=== PATIENT | male | born 1945 | race Caucasian/White ===

== ENCOUNTER 2023-06-16 05:03 | Emergency (ER) | payer MEDICARE, OTHER, SELFPAY ==
[2023-06-16 05:07] VITALS: BP 138/72; BMI 23.4
[2023-06-16 06:01] VITALS: BP 86/73
[2023-06-16 06:05] VITALS: BP 134/66
--- NOTE | 2023-06-16 06:47 | ED.GENMED ---
History of Present Illness
General
Chief Complaint: Fall
Source: patient
Exam Limitations: none
Time Seen by Provider: 06/16/23 06:01
Travel History
Have you had any contact with someone who has COVID-19?: No
Do you have any symptoms of coronavirus? Fever > 100 degrees, chills, cough, shortness of breath, sore throat, loss of taste or smell, muscle aches, or headache?: No
History of Present Illness
History of Present Illness:
77-year-old male who presents after he had a fall at his place of living. He [place] [facility] [place] [facility] years now. The patient states that he should have used his walker. He states he has trouble seeing and thought he reach for
it but missed and sort of fell into the chair. He states he then lowered himself to the ground. He did not fall to the ground. He did not hit his head. He denies head injury, neck pain, back pain. Denies any focal injuries. He called the
ambulance because he felt weak. He does report feeling weak. No chest pain or shortness of breath. No fevers
Past History
Past History
ED Past Medical History: Arrthythmia (afib), GERD, HTN, Hypercholesterolemia, NIDDM, Valvular disease and Psychiatric (a/d)
ED Past Surgical History: Other (Dental)
Social History
Tobacco: Non-smoker
Alcohol: None
Drug: None
Personal:
Living: alone (In a motel)
Employment: Not employed
Family History
Family History: Diabetes
Phy Exam
Physical Exam
Physical Exam:
CONSTITUTIONAL Patient alert and oriented to person, place and time. Well-appearing. Vital signs reviewed.
HEAD atraumatic, normocephalic.
EYES eyelids normal to inspection, Extraocular muscles intact, Conjunctiva normal, Sclera normal.
NECK normal range of motion, Trachea midline, no jugular venous distention.
RESPIRATORY CHEST No respiratory distress noted, Chest expansion equal, Bilateral breath sounds clear.
CARDIOVASCULAR regular rate and rhythm, Heart sounds normal.
ABDOMEN abdomen nontender, Bowel sounds normal. No distention.
BACK normal inspection, no obvious deformities
UPPER EXTREMITY range of motion normal, Motor strength normal, no cyanosis, no edema.
LOWER EXTREMITY range of motion normal, Motor strength normal, no cyanosis, no edema.
NEURO Speech normal, No focal motor deficits, [place] coma scale 15, Memory normal, Cranial Nerves intact to screening exam.
SKIN skin warm, dry, and normal in color.
PSYCHIATRIC patient oriented to person place and time, Normal affect.
Course
Orders/Labs/Results
Orders:
Orders
06/16/23 06:28
Electrocardiogram (*1) Urgent
Reason for Study: Palpitations
EKG- Treatment ONCE
06/16/23 07:18
Complete Blood Count/With Diff Urgent
Comprehensive Metabolic Panel Urgent
Urinalysis Reflex To Culture Urgent
Date Specimen was Collected: 06/16/23
Time Specimen was Collected: 07:08
Urine Microscopic Reflex Cult Urgent
Urine Culture Urgent
DELANEY Source: U
Specimen Description:
Date Specimen was Collected: 06/16/23
Time Specimen was Collected: 07:08
06/16/23 07:57
Potassium Chloride 10% Elixir [KCl Elixir] 40 meq PO NOW STA
Abnormal Lab Results
06/16/23
07:18
WBC 11.1 H 10^3/uL
(4.8-10.8)
Abs Immat Gran (auto) 0.1 H 10^3/uL
(0-0.05)
Absolute Neuts (auto) 8.8 H 10^3/uL
(1.4-6.5)
Absolute Lymphs (auto) 0.5 L 10^3/uL
(1.2-3.4)
Absolute Monos (auto) 1.6 H 10^3/uL
(0.1-0.6)
Immature Gran % 0.7 H %
(0-0.5)
Neutrophils % 78.9 H %
(42.2-75.2)
Lymphocytes % 4.9 L %
(20.5-51.1)
Monocytes % 14.7 H %
(1.7-9.3)
Sodium 131 L mmol/L
(135-145)
Potassium 3.2 L mmol/L
(3.5-5.1)
Chloride 92 L mmol/L
(98-107)
Glucose 226 H mg/dl
(70-99)
Alkaline Phosphatase 201 H U/L
(38-126)
Urine Ketones Trace A
(Negative)
Ur Occult Blood Reflex Trace A
(Negative)
Leukocyte Esterase Rfl 1+ A
(Negative)
Urine Bacteria (Reflex) Few A
(Negative)
Urine Yeast Few A
(Negative)
Urine Glucose 3+ A
(Negative)
06/16/23 07:18
06/16/23 07:18
Vital Signs
Initial and Last Documented VS:
Initial Vital Signs
Temp Pulse Resp BP Pulse Ox
98.3 F 78 20 138/72 98
06/16/23 05:07 06/16/23 05:07 06/16/23 05:07 06/16/23 05:07 06/16/23 05:07
Last Documented Vital Signs
Temp Pulse Resp BP Pulse Ox
98.3 F 65 17 124/56 98
06/16/23 05:07 06/16/23 08:00 06/16/23 08:00 06/16/23 08:00 06/16/23 07:00
MDM/Problems Addressed
MDM/Problems Addressed:
Weakness, fall
*Pulse Oximetry
Patient hypoxic: no
*EKG
Interpreted by ED Provider?: Yes
Interpretation: normal
Rhythm: ventricular paced
Ischemia: non-specific ST changes
*Director Of Midwifery/Staff Midwife Interpretation
Rate: normal
Rhythm: ventricular paced
*Critical Care Note
Total Time (30-74mins, 75-104mins- exclusive of procedures): Not Applicable
Data Reviewed
Further Testing Considered But Not Given:
Consider CT of the head but patient denies fall to the ground and denies head injury at all. There is no outward signs of trauma. He was observed and no changes in mentation.
Patient Management
Escalation/DeEscalation of care consider admission/obs:
Patient appears well. At baseline. Okay for discharge and outpatient follow-up
ED Attending Note
-
Portions of this chart may have been created with voice recognition software.� Occasional wrong word or��sound alike� substitutions may have occurred due to the inherent limitations of voice recognition software.
Discharge Plan
Departure
Patient Disposition: Home (Routine Discharge)
Date of Disposition: 06/16/23
Time of Disposition: 09:12
Patient with high blood pressure during this ER visit?: No
Discharge Problem:
Weakness, Fall
Instructions: Generalized Weakness, Fall Prevention for Older Adults
Prescriptions:
No Action
pravastatin 40 mg Tablet
40 mg PO QPM
glimepiride 4 mg Tablet
4 mg PO DAILY
brimonidine-timolol [Combigan] 0.2-0.5 % Drops
1 drp BOTH EYES BID
Lumigan 0.01 % drops
1 drp BOTH EYES HS
docusate sodium 100 mg Capsule
100 mg PO BIDPRN PRN (Reason: constipation) Qty: 30 0RF
polyethylene glycol 3350 17 gram Powder In Packet
17 g PO DAILYPRN PRN (Reason: constipation) Qty: 30 0RF
dextrose [Glucose Gel] 40 % Gel
15 g PO Q1HPRN PRN (Reason: HYPOGLYCEMIA, IS CONSCIOUS AND CAN TAKE PO)
magnesium hydroxide [Milk of Magnesia] 400 mg/5 mL Suspension
30 ml PO DAILYPRN PRN (Reason: NO BM IN 3 DAYS)
bisacodyl [Dulcolax (bisacodyl)] 10 mg Suppository
10 mg MD DAILY PRN (Reason: IF MOM INEFFECTIVE)
Fleet Enema 19-7 gram/118 mL Enema
118 ml MD DAILYPRN PRN (Reason: IF DULCO SUPP INEFFECTIVE IN 24h)
sertraline 50 mg Tablet
50 mg PO DAILY
insulin aspart U-100 [Novolog FlexPen U-100 Insulin] 100 unit/mL (3 mL) Insulin Pen
0 sliding scale dose SC AC
solifenacin 5 mg Tablet
5 mg PO DAILY
glucagon HCl [Glucagon (HCl) Emergency Kit] 1 mg Recon Soln
1 mg IM PRN PRN (Reason: HYPOGLYCEMIA BS<70)
furosemide 40 mg tablet
40 mg PO DAILY
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
aspirin 81 mg tablet,delayed release (DR/EC)
81 mg PO DAILY
carvedilol 3.125 mg tablet
3.125 mg PO BID
potassium chloride [Klor-Con] 20 mEq packet
20 meq PO BID
Hold Instructions: hold until follow up with your sales [employer] and primary care doctor
Jardiance 10 mg tablet
10 mg PO DAILY
Entresto 24-26 mg tablet
1 tab PO BID
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
acetaminophen [Tylenol] 325 mg Tablet
650 mg PO Q8H Qty: 0 0RF
spironolactone 25 mg tablet
12.5 mg PO DAILY Qty: 0 0RF
Referrals:
Hair Harris DO [Family Provider] -
Activity Restrictions/Additional Instructions:
please see your doctor in follow-up next 3 to 5 days. Please be sure to use your walker as discussed. Return immediately for changes in mentation, weakness of any kind, fevers or any other concerns.
Interventions
Interventions:
*Risk Screen - Suicide Last Done: 06/16/23 05:07
*General Assessment Last Done: 06/16/23 05:07
*Neglect/Abuse Screening Last Done: 06/16/23 05:07
ED- Fall Risk Assessment Last Done: 06/16/23 05:27
*ED COVID-19 Vaccine History Last Done: 06/16/23 05:23
ED-Musculoskeletal Assessment Last Done: 06/16/23 05:27
ED- Neurological Assessment Last Done: 06/16/23 05:27
ED-Skin Assessment Last Done: 06/16/23 05:27
[2023-06-16 07:00] VITALS: BP 125/56
[2023-06-16 07:32] LABS: % Basophils 0.4 % (0-2); % Eosinophils 0.4 % (0-6); % Immature Granulocytes 0.7 % (0-0.5); % Lymphocytes 4.9 % (20.5-51.1); % Monocytes 14.7 % (1.7-9.3); % Neutrophils 78.9 % (42.2-75.2); Absolute Immature Granulocytes 0.1 10^3/uL (0-0.05); Absolute Lymphocytes 0.5 10^3/uL (1.2-3.4); Absolute Monocytes 1.6 10^3/uL (0.1-0.6); Absolute Neutrophils 8.8 10^3/uL (1.4-6.5); Hemoglobin 14.5 g/dL (13.0-18.0); Mean Corp Hgb Conc. 33.7 g/dL (33.0-37.0); Mean Corpuscular Hgb 28.2 pg (27.0-31.0); Mean Corpuscular Volume 83.7 fL (80.0-94.0); Mean Platelet Volume 8.6 fL (7.4-10.4); Nucleated Red Blood Cells % 0 % (-); Platelet Count 146 10^3/uL (130-400); Red Blood Cell Count 5.14 10^6/uL (4.70-6.10); Red Cell Dist. Width 14.4 % (11.5-14.5); White Blood Cell Count 11.1 10^3/uL (4.8-10.8)
[2023-06-16 07:37] LABS: Urine Albumin Negative (Neg - Trace); Urine Bilirubin Negative (Negative); Urine Character Clear (Clear); Urine Color Yellow; Urine Glucose 3+ (Negative); Urine Ketone Trace (Negative); Urine Leukocyte 1+ (Negative); Urine Nitrite Negative (Negative); Urine Occult Blood Trace (Negative); Urine Urobilinogen Negative (Neg - 1+)
[2023-06-16 07:47] LABS: ALT (SGPT) 36 U/L (0-50); AST (SGOT) 48 U/L (17-59); Albumin 4.2 g/dl (3.5-5.0); Alkaline Phosphatase 201 U/L (38-126); Blood Urea Nitrogen 17 mg/dl (9-20); Calcium 9.4 mg/dl (8.4-10.2); Carbon Dioxide 30 mmol/L (22-30); Chloride 92 mmol/L (98-107); Estimated Creatinine Clearance 87 ml/min; Glucose 226 mg/dl (70-99); Potassium 3.2 mmol/L (3.5-5.1); Sodium 131 mmol/L (135-145); Total Bilirubin 0.7 mg/dl (0.2-1.3); Total Protein 7.2 g/dl (6.3-8.2); eGFR > 60.00
[2023-06-16 08:00] VITALS: BP 124/56
[2023-06-16 08:15] LABS: Urine Bacteria Few (Negative); Urine Red Blood Cell 0-2 /HPF (0-2); Urine White Cell 0-2 /HPF (0-5); Urine Yeast Few (Negative)
[2023-06-16] MEDS: KCL ELIXIR 40 MEQ PO (08:21)
[2023-06-16 09:00] VITALS: BP 117/90
--- NOTE | 2023-06-16 09:39 | CM ---
CM was consulted to assist with transportation back to [facility] in [place]. Patient is on extended stay at [facility] and is currently homeless. CM will provide transportation assistance via [employer].
== END 2023-06-16 09:57 | disposition home or self-care (01) ==
LOC: EMR 05:03
PROVIDERS: EMERGENCY PHYSICIAN Emergency Medicine; FAMILY PHYSICIAN Family Medicine
DX: R53.1 Weakness (principal); W19.XXXA Unspecified fall, initial encounter; E78.00 Pure hypercholesterolemia, unspecified; E11.9 Type 2 diabetes mellitus without complications; I38 Endocarditis, valve unspecified; I11.0 Hypertensive heart disease with heart failure; I50.9 Heart failure, unspecified; R01.1 Cardiac murmur, unspecified; I48.91 Unspecified atrial fibrillation; K21.9 Gastro-esophageal reflux disease without esophagitis; F41.9 Anxiety disorder, unspecified; F32.A Depression, unspecified; Z95.0 Presence of cardiac pacemaker; Z79.84 Long term (current) use of oral hypoglycemic drugs
CPT/HCPCS: 99283; 80053; 81003; 81015; 85025; 87086; 93005

== ENCOUNTER 2024-09-29 08:03 | Inpatient (IN) | payer MEDICARE, OTHER, SELFPAY ==
[2024-09-28] VITALS (10 sets, daily range): BP systolic 126–154; BP diastolic 53–84; PULSE 95
[2024-09-28 12:41] LABS: % Basophils 0.5 % (0-2); % Eosinophils 0.9 % (0-6); % Immature Granulocytes 0.7 % (0-0.5); % Monocytes 6.4 % (1.7-9.3); % Neutrophils 82.5 % (42.2-75.2); Absolute Basophils 0.1 10^3/uL (0-0.2); Absolute Eosinophils 0.2 10^3/uL (0-0.7); Absolute Immature Granulocytes 0.1 10^3/uL (0-0.05); Absolute Lymphocytes 1.8 10^3/uL (1.2-3.4); Absolute Monocytes 1.3 10^3/uL (0.1-0.6); Absolute Neutrophils 16.4 10^3/uL (1.4-6.5); Hematocrit 43.1 % (39.0-52.0); Hemoglobin 14.6 g/dL (13.0-18.0); Mean Corp Hgb Conc. 33.9 g/dL (33.0-37.0); Mean Corpuscular Hgb 28.8 pg (27.0-31.0); Mean Platelet Volume 8.8 fL (7.4-10.4); Nucleated Red Blood Cells % 0 % (-); Platelet Count 255 10^3/uL (130-400); Red Blood Cell Count 5.07 10^6/uL (4.70-6.10); White Blood Cell Count 19.8 10^3/uL (4.8-10.8)
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
[2024-09-28 13:09] LABS: ALT (SGPT) 25 U/L (0-50); AST (SGOT) 25 U/L (17-59); Albumin 3.9 g/dl (3.5-5.0); Alkaline Phosphatase 167 U/L (38-126); Blood Urea Nitrogen 17 mg/dl (9-20); Calcium 10.6 mg/dl (8.4-10.2); Carbon Dioxide 34 mmol/L (22-30); Chloride 95 mmol/L (98-107); Estimated Creatinine Clearance 74 ml/min; Glucose 177 mg/dl (70-99); Potassium 3.4 mmol/L (3.5-5.1); Sodium 137 mmol/L (135-145); Total Bilirubin 0.9 mg/dl (0.2-1.3); Total Protein 7.3 g/dl (6.3-8.2); eGFR > 60.00
[2024-09-28] MEDS: NSS 500 IV (13:21)
[2024-09-28 13:41] LABS: Urine Albumin 2+ (Neg - Trace); Urine Bilirubin Negative (Negative); Urine Character Clear (Clear); Urine Color Yellow; Urine Glucose 4+ (Negative); Urine Ketone Negative (Negative); Urine Leukocyte 3+ (Negative); Urine Nitrite Negative (Negative); Urine Occult Blood 4+ (Negative); Urine Specific Gravity 1.015 (<1.030); Urine Urobilinogen Negative (Neg - 1+)
[2024-09-28 13:59] LABS: Troponin I 0.016 ng/ml
[2024-09-28 14:01] LABS: Creatine Phosphokinase 39 U/L (55-170)
[2024-09-28 14:28] LABS: Urine Squamous Cell 16-20 /LPF (Few)
[2024-09-28 14:29] LABS: Urine Amorphous Seen
[2024-09-28 14:31] LABS: Urine Red Blood Cell 30-40 /HPF (0-2)
[2024-09-28 14:32] LABS: Urine Bacteria Many (Negative); Urine White Cell 60-70 /HPF (0-5)
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
--- NOTE | 2024-09-28 15:46 | CM ---
ED CM consult for dc planning
Bedside meeting with pt
He has been living in a motel for 5 years as he does not get along with his spouse
Spouse continues resides in their family home and she manages the finances
Pt is independent with use of a WW
Spouse continues to assist and support pt in the motel multiple times a week
PCP- Rajinder Mac
PT eval requested and SNF recommendations
Call with Cydney at [facility] as pt noted he has a CM through [facility]
Not currently receiving any services through the [facility] or waiver
Call with spouse/Matilda
She confirms she manages all their finances
Pt currently without qualifying stay
Plan for general SNF referrals in the the [facility]
PASRR completed and referrals sent and pending
CM late notified that pt planned for admissions/with UTI
Not eligible for [employer] waiver
Discharge Disposition- SNF
[2024-09-28 17:06] LABS: Magnesium 1.5 mg/dl (1.6-2.3); Phosphorus 3.3 mg/dl (2.5-4.5)
--- NOTE | 2024-09-28 17:07 | W.PN.UPDATE ---
Update Note
Progress Note Update
Patient seen and examined and discussed with ADRIAN Puente, and I agree with her note.
Gen-AAOx3, NAD, cachectic
HEENT-NC, AT, anicteric, clear oral mm
Neck-supple
CV-reg, no M, +S1/S2
Lungs-clear B/L
Abd-soft, NT, ND
Ext-no edema
Musculoskeletal-no cyanosis, clubbing
Skin-warm and dry
Neuro-grossly non-focal
Psych-calm, cooperative
Sepsis -presentation with generalized weakness, leukocytosis, tachycardia. Differential diagnosis of community-acquired pneumonia versus urinary tract infection. He does have a mild cough, but denies urinary symptoms. He is not a very good
historian. Hemodynamically stable otherwise. Admit to telemetry, broad-spectrum antibiotics, check cultures.
Ambulatory dysfunction -presentation with fall. Cannot rule out syncope. Monitor on telemetry. Check orthostatics. Interrogate ICD.
Consult PT/OT.
Urinary retention -probably chronic. Bladder ultrasound notes 409 cc postvoid residual. No hydronephrosis noted on ultrasound. Follow-up bladder scan protocol. Can add tamsulosin.
History of atrial flutter/fibrillation -continue Eliquis.
Chronic heart failure reduced EF -last echocardiogram showed EF improvement in January 2023.
Essential hypertension
Hyperlipidemia
DM2 with hyperglycemia -he is on glimepiride, Jardiance at home. Hold glimepiride in the hospital. Use sliding scale insulin in the hospital. Check hemoglobin A1c.
GERD
Underweight -concern for protein calorie malnutrition. Consult nutrition.
Depression/anxiety disorder -denies suicidal ideation currently. Crisis has been asked to see in evaluation.
DNR
Dispo -anticipate discharge to SNF with option for long-term care. Currently resides in a hotel and cannot take care of himself.
Left a voicemail for patient's to call me back.
[2024-09-28] MEDS: MAXIPIME 2000 MG IV (17:08)
[2024-09-28] MEDS: ELIQUIS 5 MG PO (19:55)
[2024-09-28] MEDS: COREG 3.125 MG PO (19:55)
[2024-09-28] MEDS: PRAVACHOL 40 MG PO (19:55)
[2024-09-28] MEDS: VIBRAMYCIN 260 MG IV (19:56)
[2024-09-28 21:24] LABS: Glucose - Point of Care 184 mg/dl (70-99)
[2024-09-28] MEDS: MELATONIN 5 MG PO (23:05)
[2024-09-28] MEDS: STERILE WATER FOR INJECTION 10 ML IV (23:09)
[2024-09-28] MEDS: ROCEPHIN 1000 MG IV (23:09)
--- NOTE | 2024-09-29 00:32 | PTCARENOTE ---
patient was offered body hygiene, but refused.
[2024-09-29] MEDS: ANESTHETIC LOZENGE 1 LOZENGE PO (00:47)
[2024-09-29 03:00] VITALS: BP 122/58
[2024-09-29 06:00] VITALS: BMI 16.9
[2024-09-29 06:03] LABS: Hematocrit 39.7 % (39.0-52.0); Hemoglobin 13.2 g/dL (13.0-18.0); Mean Corp Hgb Conc. 33.2 g/dL (33.0-37.0); Mean Corpuscular Hgb 28.6 pg (27.0-31.0); Mean Corpuscular Volume 85.9 fL (80.0-94.0); Mean Platelet Volume 8.7 fL (7.4-10.4); Platelet Count 238 10^3/uL (130-400); Red Blood Cell Count 4.62 10^6/uL (4.70-6.10); Red Cell Dist. Width 14.8 % (11.5-14.5); White Blood Cell Count 19.1 10^3/uL (4.8-10.8)
[2024-09-29 06:31] LABS: Blood Urea Nitrogen 12 mg/dl (9-20); Calcium 9.5 mg/dl (8.4-10.2); Carbon Dioxide 32 mmol/L (22-30); Chloride 97 mmol/L (98-107); Estimated Creatinine Clearance 70 ml/min; Glucose 127 mg/dl (70-99); Sodium 138 mmol/L (135-145); eGFR > 60.00
[2024-09-29 07:33] VITALS: BP 136/67
[2024-09-29] MEDS: KCL 270 MEQ IV (07:36)
[2024-09-29] MEDS: MAGNESIUM SULFATE 100 IV (07:48)
[2024-09-29 07:58] LABS: Glucose - Point of Care 105 mg/dl (70-99)
[2024-09-29 08:01] LABS: Magnesium 1.5 mg/dl (1.6-2.3)
[2024-09-29] MEDS: FARXIGA 10 MG PO (08:15)
[2024-09-29] MEDS: VIBRAMYCIN 260 MG IV ×2 (08:15→20:23)
[2024-09-29] MEDS: VESICARE 5 MG PO (08:15)
[2024-09-29] MEDS: ELIQUIS 5 MG PO ×2 (08:16→20:16)
[2024-09-29] MEDS: ALDACTONE 25 MG PO (08:16)
[2024-09-29] MEDS: LASIX 40 MG PO (08:16)
[2024-09-29] MEDS: COREG 3.125 MG PO ×2 (08:16→20:16)
[2024-09-29] MEDS: NOVOLOG FLEXPEN-LOW RESISTANCE SC ×2 (08:16→12:38)
[2024-09-29] MEDS: KCL 20 MEQ PO (08:16)
[2024-09-29] MEDS: ZOLOFT 50 MG PO (08:16)
[2024-09-29 08:47] LABS: Glycohemoglobin (HgbA1c) 11.5 % (4.0-5.6)
--- NOTE | 2024-09-29 09:30 | W.PN.HOSP.TC ---
Today's Communication/Plan
-
Psychiatry consult
Interrogate ICD
Orthostatic vitals
Monitor bladder scans
Continue antibiotics
Follow-up blood cultures
Replete potassium, magnesium
PT/OT
Assessment / Plan
Assessment / Plan
Gen-AAOx3, NAD, cachectic
HEENT-NC, AT, anicteric, clear oral mm
Neck-supple
CV-reg, no M, +S1/S2
Lungs-clear B/L
Abd-soft, NT, ND
Ext-no edema
Musculoskeletal-no cyanosis, clubbing
Skin-warm and dry
Neuro-grossly non-focal
Psych-calm, cooperative
Sepsis -presentation with generalized weakness, leukocytosis, tachycardia. Differential diagnosis of community-acquired pneumonia versus urinary tract infection. He does have a mild cough, but denies urinary symptoms. Urinalysis does show pyuria
and hematuria. He is not a very good historian. Hemodynamically stable otherwise. Blood cultures pending. Urine culture shows mixed alesia, probable contamination. Continue broad-spectrum antibiotics.
Check COVID antigen.
Ambulatory dysfunction -presentation with fall. Cannot rule out syncope. Monitor on telemetry. Check orthostatics. Interrogate ICD, [place] text sent to cardiology.
Consult PT/OT.
Urinary retention -probably chronic. Bladder ultrasound notes 409 cc postvoid residual. No hydronephrosis noted on ultrasound. Follow-up bladder scan protocol. Can add tamsulosin.
Hypokalemia -will replete. Potassium 3.0.
Hypomagnesemia -will replete. Magnesium 1.5.
History of atrial flutter/fibrillation -continue Eliquis.
Chronic heart failure reduced EF -last echocardiogram showed EF improvement in January 2023.
Essential hypertension -stable.
Hyperlipidemia -pravastatin.
DM2 with hyperglycemia -uncontrolled. Hemoglobin A1c 11.5%. Likely not compliant with his home medications. He is prescribed glimepiride, Jardiance at home. Hold glimepiride in the hospital. Currently on Farxiga 10 mg daily, insulin aspart low
resistance corrective scale.
Glucose 127 this morning, 184 last night.
GERD
Underweight -concern for protein calorie malnutrition. Consult nutrition.
Depression/anxiety disorder -denies suicidal ideation currently. Consult psychiatry.
DNR
Dispo -anticipate discharge to SNF with option for long-term care. Currently resides in a hotel and cannot take care of himself.
Left a voicemail for patient's to call me back.
Anticipated Discharge: 24 - 48 hours
Subjective/Interval History
-
Date of Service: September 29, 2024
Patient seen and examined. No new complaints.
Objective Data
-
Labs:
Laboratory Results
09/29/24
05:29
WBC 19.1 H
Hgb 13.2
Hct 39.7
Plt Count 238
Sodium 138
Potassium 3.0 L
Chloride 97 L
Carbon Dioxide 32 H
BUN 12
Creatinine 0.5 L
Glucose 127 H
Calcium 9.5
Vital Signs:
Vital Signs
Temp Pulse Resp BP Pulse Ox
98.8 F 66 18 136/67 92
09/29/24 07:33 09/29/24 07:33 09/29/24 07:33 09/29/24 07:33 09/29/24 07:33
I&O
09/28/24 09/29/24 09/30/24
06:59 06:59 06:59
Intake Total 480 / 480
Output Total 420 / 420 665 / 665
Balance -420 / -420 -185 / -185
Review of Systems
-
History Source: Patient
All other systems: Reviewed and negative
[2024-09-29] MEDS: FLOMAX 0.4 MG PO (09:55)
[2024-09-29 10:12] VITALS: BMI 16.9
--- NOTE | 2024-09-29 10:31 | PTCARENOTE ---
Per bladder scan/straight cath protocol pt. bladder scanned which showed 442mls. This RN noticed prior to straight cath insertion that the tip of the pt's penis is very red and irritated. This RN suspected that pt. could be allergic to Betadine
since this was used for the last straight cath insertion and the pt. says this is a new finding. This RN updated provider and PRN Hibiclens ordered for straight cath/palacios insertion.
[2024-09-29 11:11] LABS: Glucose - Point of Care 168 mg/dl (70-99)
[2024-09-29 11:26] VITALS: BP 115/50
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
[2024-09-29 15:30] VITALS: BP 100/57
[2024-09-29] MEDS: PRAVACHOL 40 MG PO (17:28)
[2024-09-29 17:31] LABS: Glucose - Point of Care 260 mg/dl (70-99)
[2024-09-29 18:05] LABS: COVID-19 Antigen Negative (Negative)
[2024-09-29] MEDS: NOVOLOG FLEXPEN-LOW RESISTANCE 3 UNITS SC (18:12)
[2024-09-29 19:00] VITALS: BP 121/56
[2024-09-29] MEDS: HYDROCORTISONE 1% CREAM 1 APPLIC TOPICAL (20:18)
[2024-09-29] MEDS: STERILE WATER FOR INJECTION 10 ML IV (21:23)
[2024-09-29] MEDS: ROCEPHIN 1000 MG IV (21:23)
[2024-09-29 21:59] LABS: Glucose - Point of Care 239 mg/dl (70-99)
[2024-09-29 23:00] VITALS: BP 143/68
[2024-09-30] VITALS (7 sets, daily range): BP systolic 99–132; BP diastolic 44–78; PULSE 64; O2SAT 97; BMI 17.4
[2024-09-30 07:16] LABS: Glucose - Point of Care 154 mg/dl (70-99)
[2024-09-30 07:38] LABS: % Basophils 0.4 % (0-2); % Eosinophils 1.1 % (0-6); % Immature Granulocytes 0.6 % (0-0.5); % Lymphocytes 11.2 % (20.5-51.1); % Monocytes 8.3 % (1.7-9.3); % Neutrophils 78.4 % (42.2-75.2); Absolute Basophils 0.1 10^3/uL (0-0.2); Absolute Eosinophils 0.2 10^3/uL (0-0.7); Absolute Immature Granulocytes 0.1 10^3/uL (0-0.05); Absolute Monocytes 1.5 10^3/uL (0.1-0.6); Absolute Neutrophils 14.2 10^3/uL (1.4-6.5); Hematocrit 34.7 % (39.0-52.0); Hemoglobin 11.6 g/dL (13.0-18.0); Mean Corp Hgb Conc. 33.4 g/dL (33.0-37.0); Mean Corpuscular Hgb 28.4 pg (27.0-31.0); Mean Corpuscular Volume 84.8 fL (80.0-94.0); Nucleated Red Blood Cells % 0 % (-); Platelet Count 225 10^3/uL (130-400); Red Blood Cell Count 4.09 10^6/uL (4.70-6.10); Red Cell Dist. Width 14.9 % (11.5-14.5); White Blood Cell Count 18.2 10^3/uL (4.8-10.8)
[2024-09-30] MEDS: VESICARE 5 MG PO (07:47)
[2024-09-30] MEDS: COREG 3.125 MG PO ×2 (07:47→21:37)
[2024-09-30] MEDS: FARXIGA 10 MG PO (07:47)
[2024-09-30] MEDS: FLOMAX 0.4 MG PO ×2 (07:47→21:37)
[2024-09-30] MEDS: KCL 20 MEQ PO (07:47)
[2024-09-30] MEDS: ELIQUIS 5 MG PO ×2 (07:48→21:36)
[2024-09-30] MEDS: ZOLOFT 50 MG PO (07:48)
[2024-09-30] MEDS: HYDROCORTISONE 1% CREAM 1 APPLIC TOPICAL ×2 (07:48→21:36)
[2024-09-30] MEDS: ALDACTONE 25 MG PO (07:48)
[2024-09-30] MEDS: LASIX 40 MG PO (07:48)
[2024-09-30] MEDS: VIBRAMYCIN 260 MG IV ×2 (07:49→21:35)
[2024-09-30] MEDS: NOVOLOG FLEXPEN-LOW RESISTANCE 1 UNITS SC (07:49)
[2024-09-30 08:15] LABS: Blood Urea Nitrogen 12 mg/dl (9-20); Calcium 8.8 mg/dl (8.4-10.2); Carbon Dioxide 30 mmol/L (22-30); Chloride 97 mmol/L (98-107); Estimated Creatinine Clearance 72 ml/min; Glucose 147 mg/dl (70-99); Potassium 3.9 mmol/L (3.5-5.1); Sodium 136 mmol/L (135-145); eGFR > 60.00
--- NOTE | 2024-09-30 09:43 | W.PN.HOSP.TC ---
Today's Communication/Plan
-
Orthostatic vitals
General Surgery consult
Urology consult
Increase tamsulosin
Aponte catheter
Assessment / Plan
Assessment / Plan
Gen-AAOx3, NAD, cachectic
HEENT-NC, AT, anicteric, clear oral mm
Neck-supple
CV-reg, no M, +S1/S2
Lungs-clear B/L
Abd-soft, NT, ND
Ext-no edema
Musculoskeletal-no cyanosis, clubbing
Skin-warm and dry
Neuro-grossly non-focal
Psych-calm, cooperative
Sepsis -presentation with generalized weakness, leukocytosis, tachycardia. WBC count still relatively high. Afebrile. Differential diagnosis of community-acquired pneumonia versus urinary tract infection. He does have a mild cough, but denies
urinary symptoms. Urinalysis does show pyuria and hematuria. He is not a very good historian. Hemodynamically stable otherwise. Blood cultures negative so far. Urine culture shows mixed alesia, probable contamination. Continue broad-spectrum
antibiotics.
Possible balanitis -unclear if infectious versus allergic reaction. Consult urology.
Urinary retention, acute versus chronic -bladder scans consistently over [address] Aponte catheter. Discussed with nursing. Increase tamsulosin to twice daily.
Large right inguinal hernia -chronic but does have pain occasionally. Will consult general surgery for opinion.
Ambulatory dysfunction -presentation with fall. Cannot rule out syncope. Monitor on telemetry. Check orthostatics. ICD interrogation without concerning arrhythmias. Discussed with cardiology.
Hypokalemia -improved.
Hypomagnesemia -labs pending for today.
History of atrial flutter/fibrillation -continue Eliquis.
Chronic heart failure reduced EF -last echocardiogram showed EF improvement in January 2023.
Essential hypertension -stable.
Hyperlipidemia -pravastatin.
DM2 with hyperglycemia -uncontrolled. Hemoglobin A1c 11.5%. Likely not compliant with his home medications. He is prescribed glimepiride, Jardiance at home. Hold glimepiride in the hospital. Currently on Farxiga 10 mg daily, insulin aspart low
resistance corrective scale.
Glucose 154 this morning, 239 last night.
GERD
Underweight -concern for protein calorie malnutrition. Consult nutrition.
Depression/anxiety disorder -denies suicidal ideation currently. Psychiatry consult noted.
DNR
Dispo -anticipate discharge to SNF with option for long-term care. Currently resides in a hotel and cannot take care of himself.
Left a voicemail for patient's to call me back. No callback so far.
Anticipated Discharge: 24 - 48 hours
Subjective/Interval History
-
Date of Service: September 30, 2024
Patient seen and examined. Complaining of pleuritic pain with cough. Occasional right inguinal pain.
Objective Data
-
Labs:
Laboratory Results
09/30/24
07:02
WBC 18.2 H
Hgb 11.6 L
Hct 34.7 L
Plt Count 225
Sodium 136
Potassium 3.9 D
Chloride 97 L
Carbon Dioxide 30
BUN 12
Creatinine 0.6 L
Glucose 147 H
Calcium 8.8
Vital Signs:
Vital Signs
Temp Pulse Resp BP Pulse Ox
98.4 F 67 19 125/78 98
09/30/24 07:43 09/30/24 07:43 09/30/24 07:43 09/30/24 07:43 09/30/24 07:43
I&O
09/29/24 09/30/24 10/01/24
06:59 06:59 06:59
Intake Total 1080 / 1080
Output Total 420 / 420 2094 / 2094
Balance -420 / -420 -1015 / -1015
Review of Systems
-
History Source: Patient
All other systems: Reviewed and negative
[2024-09-30 10:05] LABS: Phosphorus 2.1 mg/dl (2.5-4.5)
--- NOTE | 2024-09-30 10:05 | CONS.URO ---
Consultation
-
Date/Time Consultation Performed: 09/30/2024 0955
Performing Provider: Abimael
Reason for Consultation: balanitis
Medical History
History of Present Illness
79 yo male admitted via ED yesterday after 'mechanical fall'.
Evaluated for suicidal ideation, depression, anxiety since admission.
Was straight catheterized yesterday for 413 ml.
Today, phallus was noted to be erythematous, prompting Urology consultation.
Past Medical History
Past Medical History: Psychiatric (see HPI) and Other (DM-II, hypertension, hyperlipidemia, GERD, HFrEF)
Past Surgical History: None
Social History
Personal: Other (estranged from , but she still provides care for him)
Living: Alone
Employment: Not Employed
Family History
Family History: Reviewed & Not Pertinent
Allergies/Home Medications
Allergies
Allergy/AdvReac Type Severity Reaction Status Date / Time
No Known Allergies Allergy Verified 09/28/24 12:18
Home Medications
�Medication �Instructions �Recorded �Confirmed �Type
bimatoprost 0.01 % eye drops 1 drp BOTH EYES HS Eye condition 06/26/22 07/11/22 History
(Lumigan)
brimonidine 0.2 %-timolol 0.5 % 1 drp BOTH EYES BID Eye condition 06/26/22 07/11/22 History
eye drops (Combigan)
glimepiride 4 mg tablet 4 mg PO DAILY Diabetes 06/26/22 09/28/24 History
pravastatin 40 mg tablet 40 mg PO QPM High cholesterol 06/26/22 07/11/22 History
carvedilol 3.125 mg tablet 3.125 mg PO BID Heart Failure 07/11/22 09/28/24 History
empagliflozin 10 mg tablet 10 mg PO DAILY Diabetes 07/11/22 09/28/24 History
(Jardiance)
sertraline 50 mg tablet 50 mg PO DAILY Depression 07/11/22 09/28/24 History
solifenacin 5 mg tablet 5 mg PO DAILY Urinary issue 07/11/22 09/28/24 History
apixaban 5 mg tablet (Eliquis) 5 mg PO BID 09/28/24 09/28/24 History
furosemide 40 mg tablet (Lasix) 40 mg PO DAILY 09/28/24 09/28/24 History
hydroxyzine HCl 25 mg tablet 25 mg PO TIDPRN PRN anxiety 09/28/24 09/28/24 History
potassium chloride 20 mEq 20 meq PO DAILY 09/28/24 09/28/24 History
tablet,extended release
spironolactone 25 mg tablet 25 mg PO DAILY Heart Failure 09/28/24 09/28/24 History
Physical Exam
Vital Signs
Vital Signs
Temp Pulse Resp BP Pulse Ox
98.4 F 67 19 125/78 98
09/30/24 07:43 09/30/24 07:43 09/30/24 07:43 09/30/24 07:43 09/30/24 07:43
Lab / Testing Results
Laboratory Results
09/30/24 07:02
09/30/24 07:02
Physical Exam
adult male in hospital bed
thin, cachectic -- appears chronically ill
General: No Apparent Distress
Genito-urinary: Other (uncircumcised phallus with retracted foreskin and erythematous, edematous glans and prepuce with whitish exudate; paraphimosis manually reduced at bedside with patient's verbal consent obtained)
Assessment / Plan
-
Paraphimosis -- foreskin presumptive retracted at time of straight catheterization
secondary Balanitis
Rec:
paraphimosis manually reduced at bedside
Fluconazole x 3 doses
Data Reviewed
-
Total Time Spent with Patient (in minutes): 7 minutes
Lab Data: Labs Reviewed
Old Records: Reviewed
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
[2024-09-30] MEDS: SODIUM PHOSPHATE 255 MEQ IV (11:45)
[2024-09-30 11:58] LABS: Glucose - Point of Care 274 mg/dl (70-99)
[2024-09-30] MEDS: MYCOSTATIN OINTMENT 1 APPLIC TOPICAL ×2 (12:32→22:12)
[2024-09-30] MEDS: NOVOLOG FLEXPEN-LOW RESISTANCE 3 UNITS SC ×2 (12:33→17:56)
--- NOTE | 2024-09-30 12:57 | CON.GS ---
Consultation
-
Date/Time Consultation Performed: 09/30/24
Requesting Provider: Osiel
Performing Provider: Aicha
Reason for Consultation: RI
Medical History
-
Chief Complaint: mechanical fall
History of Present Illness:
79M admitted 2 days ago for mechanical fall. He reports he was able to lower himself down and had no evidence of blunt trauma. He expressed suicidal ideation and was evaluated by Psych, and was also seen by Uro for paraphimosis (reduced) and
balanitis. He has a hx of depression and reports recent significant unintentional wt loss. He knows he has a lump in the groin, he reports it bothers him only briefly and only occasionally (1x month). His memory and cognition are impaired and this
limits history.
Past Medical History
Past Medical History: Other (DM-II hypertension hyperlipidemia GERD HFrEF Seasonal Allergies, depression)
Past Surgical History: Other (pacemaker)
Social History
Tobacco: Former Smoker
Alcohol: None
Drug: None
Personal: (estranged but still provides care)
Living: Alone (in a hotel)
Employment: Not Employed
Family History
Family History: Reviewed & Noncontributory
Allergies / Home Medications
Allergy/AdvReac Type Severity Reaction Status Date / Time
No Known Allergies Allergy Verified 09/28/24 12:18
�Medication �Instructions �Recorded �Confirmed �Type
bimatoprost 0.01 % eye drops 1 drp BOTH EYES HS Eye condition 06/26/22 07/11/22 History
(Lumigan)
brimonidine 0.2 %-timolol 0.5 % 1 drp BOTH EYES BID Eye condition 06/26/22 07/11/22 History
eye drops (Combigan)
glimepiride 4 mg tablet 4 mg PO DAILY Diabetes 06/26/22 09/28/24 History
pravastatin 40 mg tablet 40 mg PO QPM High cholesterol 06/26/22 07/11/22 History
carvedilol 3.125 mg tablet 3.125 mg PO BID Heart Failure 07/11/22 09/28/24 History
empagliflozin 10 mg tablet 10 mg PO DAILY Diabetes 07/11/22 09/28/24 History
(Jardiance)
sertraline 50 mg tablet 50 mg PO DAILY Depression 07/11/22 09/28/24 History
solifenacin 5 mg tablet 5 mg PO DAILY Urinary issue 07/11/22 09/28/24 History
apixaban 5 mg tablet (Eliquis) 5 mg PO BID 09/28/24 09/28/24 History
furosemide 40 mg tablet (Lasix) 40 mg PO DAILY 09/28/24 09/28/24 History
hydroxyzine HCl 25 mg tablet 25 mg PO TIDPRN PRN anxiety 09/28/24 09/28/24 History
potassium chloride 20 mEq 20 meq PO DAILY 09/28/24 09/28/24 History
tablet,extended release
spironolactone 25 mg tablet 25 mg PO DAILY Heart Failure 09/28/24 09/28/24 History
Review of Systems
-
A 10 point review of systems was completed, and was negative except as per HPI.
Physical Exam
Vital Signs
Temp Pulse Resp BP Pulse Ox
97.8 F 69 18 99/46 96
09/30/24 10:52 09/30/24 10:52 09/30/24 10:52 09/30/24 10:52 09/30/24 10:52
09/29/24 09/30/24 10/01/24
06:59 06:59 06:59
Actual Weight 48.897 kg 50.439 kg
Body Mass Index (BMI) 17.4
Lab Results
09/30/24 07:02
09/30/24 07:02
WBC 18.2 10^3/uL (4.8-10.8) H 09/30/24 07:02
Hgb 11.6 g/dL (13.0-18.0) L 09/30/24 07:02
Hct 34.7 % (39.0-52.0) L 09/30/24 07:02
Plt Count 225 10^3/uL (130-400) 09/30/24 07:02
Abs Immat Gran (auto) 0.1 10^3/uL (0-0.05) H 09/30/24 07:02
Neutrophils % 78.4 % (42.2-75.2) H 09/30/24 07:02
Physical Exam
General: Other (cachectic)
GI: Soft, Non Tender and Other (small nontender reducible umbilical hernia)
Genito-urinary: Inguinal Hernia (right soft nt reducible inguinal hernia, no left inguinal hernia detected)
Neuro: AO x 3 and Other (memory issues, cognitive impairment (loss of train of thought))
Psych: Calm
Data Reviewed
-
Old Records: Reviewed
Assessment / Plan
-
79M with minimally symptomatic RIH and asymptomatic UH in setting of cachexia, depression, likely early dementia and social challenges
I do not recommend surgery at this time for his minimally symptomatic RIH nor asymptomatic UH
I advised him to seek care if his hernias become painful, it is unclear to what degree he has insight into these issues but he seems to have some insight
I suspect his current living situation is unsafe given his cognitive/memory issues, weight loss and lack of support
Recommend DC to facility that can provide supervision and monitoring
Pls call with ?s
--- NOTE | 2024-09-30 16:37 | CM ---
Pt has been accepted for SNF transfer at [facility], [facility], [facility].
CM to follow up with Hermelindo in AM to determine which facilities he would like to consider.
Plan: SNF transfer once facility of choice has been identified; pt should be ready for discharge tomorrow.
[2024-09-30 16:45] LABS: Glucose - Point of Care 295 mg/dl (70-99)
[2024-09-30] MEDS: PRAVACHOL 40 MG PO (17:29)
[2024-09-30] MEDS: ROCEPHIN 1000 MG IV (21:35)
[2024-09-30] MEDS: STERILE WATER FOR INJECTION 10 ML IV (21:36)
[2024-09-30 21:43] LABS: Glucose - Point of Care 243 mg/dl (70-99)
[2024-10-01] VITALS (8 sets, daily range): BP systolic 103–128; BP diastolic 44–72; PULSE 62; O2SAT 96–97; BMI 17.6
[2024-10-01 06:19] LABS: % Basophils 0.5 % (0-2); % Eosinophils 1.5 % (0-6); % Immature Granulocytes 0.5 % (0-0.5); % Monocytes 8.5 % (1.7-9.3); Absolute Basophils 0.1 10^3/uL (0-0.2); Absolute Eosinophils 0.2 10^3/uL (0-0.7); Absolute Immature Granulocytes 0.1 10^3/uL (0-0.05); Absolute Lymphocytes 2.1 10^3/uL (1.2-3.4); Absolute Monocytes 1.1 10^3/uL (0.1-0.6); Absolute Neutrophils 9.7 10^3/uL (1.4-6.5); Hematocrit 34.9 % (39.0-52.0); Hemoglobin 11.7 g/dL (13.0-18.0); Mean Corp Hgb Conc. 33.5 g/dL (33.0-37.0); Mean Corpuscular Hgb 28.9 pg (27.0-31.0); Mean Corpuscular Volume 86.2 fL (80.0-94.0); Nucleated Red Blood Cells % 0 % (-); Platelet Count 215 10^3/uL (130-400); Red Blood Cell Count 4.05 10^6/uL (4.70-6.10); Red Cell Dist. Width 14.7 % (11.5-14.5); White Blood Cell Count 13.3 10^3/uL (4.8-10.8)
[2024-10-01 06:34] LABS: Blood Urea Nitrogen 12 mg/dl (9-20); Calcium 8.6 mg/dl (8.4-10.2); Carbon Dioxide 31 mmol/L (22-30); Chloride 99 mmol/L (98-107); Estimated Creatinine Clearance 73 ml/min; Glucose 161 mg/dl (70-99); Phosphorus 2.3 mg/dl (2.5-4.5); Potassium 4.1 mmol/L (3.5-5.1); Sodium 137 mmol/L (135-145); eGFR > 60.00
[2024-10-01 07:41] LABS: Glucose - Point of Care 132 mg/dl (70-99)
[2024-10-01] MEDS: NOVOLOG FLEXPEN-LOW RESISTANCE SC (08:56)
[2024-10-01] MEDS: VESICARE 5 MG PO (08:56)
[2024-10-01] MEDS: LASIX 40 MG PO (08:56)
[2024-10-01] MEDS: COREG 3.125 MG PO ×2 (08:57→20:57)
[2024-10-01] MEDS: ALDACTONE 25 MG PO (08:57)
[2024-10-01] MEDS: ZOLOFT 75 MG PO (08:57)
[2024-10-01] MEDS: KCL 20 MEQ PO (08:57)
[2024-10-01] MEDS: ELIQUIS 5 MG PO ×2 (08:57→20:56)
[2024-10-01] MEDS: FARXIGA 10 MG PO (08:57)
[2024-10-01] MEDS: FLOMAX 0.4 MG PO ×2 (08:57→20:57)
[2024-10-01] MEDS: HYDROCORTISONE 1% CREAM 1 APPLIC TOPICAL ×2 (08:57→21:00)
[2024-10-01] MEDS: MYCOSTATIN OINTMENT 1 APPLIC TOPICAL ×2 (09:03→21:00)
[2024-10-01] MEDS: VIBRAMYCIN 260 MG IV (09:05)
--- NOTE | 2024-10-01 09:55 | W.PN.URO.CBU ---
Today's Communication / Plan
-
discharge with Aponte
start Finasteride
outpatient f/u to consider options
Assessment / Plan
-
persistent urinary retention
Diagnosis
-
Date of Service: October 01, 2024
-
Patient Diagnosis:
Persistent urinary retention
balanitis s/p paraphimosis
Subjective
-
CNV yesterday --> Aponte placed for ~ 600 ml
Objective
-
Vital Signs
Temp Pulse Resp BP Pulse Ox
98.7 F 65 19 159/74 97
10/01/24 07:15 10/01/24 08:57 10/01/24 07:15 10/01/24 08:57 10/01/24 07:15
Intake and Output
09/30/24 10/01/24 10/02/24
06:59 06:59 06:59
Intake Total 1080 / 1080 810 / 810
Output Total 2094 / 2094 1450 / 1450
Balance -1015 / -1015 -640 / -640
Intake:
Oral fluids 1080 / 1080 810 / 810
Output:
Urine, Aponte 320 / 320 1450 / 1450
Urine, Voided 855 / 855
Straight cath output 920 / 920
Other:
How many times incontinent 1
SMALL amount urine
How many times incontinent 1
MODERATE amount urine
Laboratory Results
10/01/24 05:42
10/01/24 05:42
Physical Exam
-
General -cachectic, elderly male in NAD
Aponte draining yellow urine
--- NOTE | 2024-10-01 10:10 | PN.CDI ---
CDI
- -
CDI:
Physician Documentation Request
Admit Date: 09/29/24 08:03
Dear Doctor Osiel,
Progress notes include a diagnosis of chronic heart failure with reduced EF.
Last echo 02/07/2023 report states the EF is 55-60% .
Please clarify the type of CHF you are monitoring.
Type
Systolic
Diastolic
Combined Systolic/Diastolic
Other
Use of terms such as suspected, likely, concern for, or probable (associated with a specific diagnosis that is being evaluated, monitored, or treated as if it exists) are acceptable and can be coded in the inpatient setting, when documented at the
time of discharge.
Thank you,
Neena Hobbs RN, BSN
CDI Specialist
tiger text
Please use your independent medical judgment in providing your response.
--- NOTE | 2024-10-01 10:12 | PN.CDI ---
CDI
- -
CDI:
Physician Documentation Request
Admit Date: 09/29/24 08:03
Dear Doctor Osiel,
RD notes and assessment state 'Chart reviewed due to consult pt with weight loss...During visit RD able to visualize temporal wasting, protrusion of clavical, apparent ribs, orbital area sunken in, quad muscle wasting. With observed muscle and fat
wasting pt meets AND/ASPEN criteria for severe protein calorie malnutrition of chronic illness.
Assessment subcutaneous loss over rib cage -severe, orbital - severe. Assessment muscle loss over Quads- severe, clavicle- moderate, temporal- severe. '
Based on the above information and your assessment, which of the following most accurately represents the patient's nutritional status?
Severe Malnutrition
Other (please specify)
[place] Criteria (ACP Hospitalist 2017)
2 or more criteria must be present for either
non severe or severe malnutrition
Note that the criteria differs related to the
presence of an acute or chronic illness
Acute Illness Chronic Illness
Energy Intake Non Severe: <75% for >7 days Non Severe: <75% for >1 month
Severe: <50% for >5 days Severe: <75% for >1 month
Weight Loss Non Severe: 1-2% over 1 week Non Severe: 5% over 1 month
5% over 1 month 7.5% over 3 months
7.5% over 3 months 10% over 6 months
1 year N/A 20% over 1 year
Severe: >2% over 1 week Severe: >5% over 1 month
>5% over 1 month >7.5% over 3 months
>7.5% over 3 months >10% over 6 months
1 year N/A >20% over 1 year
Body Fat Non Severe: Mild Decrease Non Severe: Mild Loss
Severe: Moderate Decrease Severe: Severe Loss
Muscle Mass Non Severe: Mild Decrease Non Severe: Mild Loss
Severe: Moderate Decrease Severe: Severe Loss
Fluid Accumulation Non Severe: Mild Accumulation Non Severe: Mild Accumulation
Severe: Moderate to severe Severe: Moderate to severe
accumulation accumulation
Reduced Monument Carver Strength Non Severe: N/A Non Severe: N/A
Severe: Measurably reduced Severe: Measurably reduced
Use of terms such as suspected, likely, concern for, or probable (associated with a specific diagnosis that is being evaluated, monitored, or treated as if it exists) are acceptable and can be coded in the inpatient setting, when documented at the
time of discharge.
Thank you,
Neena Hobbs RN, BSN
CDI Specialist
tiger text
Please use your independent medical judgment in providing your response.
--- NOTE | 2024-10-01 10:36 | PTOTSP ---
Speech Therapy Evaluation:
Given suspected cognitive impairment, WELDING EQUIPMENT REPAIRER SUPERVISOR administered MOCA Version 8.1 BLIND (inability to read/see figures on version 7.1 due to vision impairment). A score of 18 and above is considered normal. Pt earned an overall score of 13/22, indicative of
neurocognitive impairment. Pt demonstrated reductions in attention, language, abstraction, memory, and orientation. He was tangential and required frequent cueing to remain on task. He reported feeling 'totally overwhelmed' prior to task initiation,
potentially impacting score. Additionally, pt with UTI, therefore difficult to determine acute changes in cognition from baseline cognitive deficits. DESIGN PROJECT MANAGER, pt resided alone in a hotel. Given scoring on this assessment, suspect pt would be unsafe to
continue doing so. Per chart, pt has been accepted for SNF. Would consider ongoing tx at SNF. WELDING EQUIPMENT REPAIRER SUPERVISOR to s/o.
[2024-10-01 11:18] LABS: Glucose - Point of Care 318 mg/dl (70-99)
[2024-10-01] MEDS: PROSCAR 5 MG PO (11:55)
[2024-10-01] MEDS: NOVOLOG FLEXPEN-LOW RESISTANCE 4 UNITS SC (11:55)
--- NOTE | 2024-10-01 12:00 | W.PN.HOSP.TC ---
Addendum entered and electronically signed by Faizan Cartagena DO 10/01/24 13:11:
Chronic heart failure with preserved EF
Severe protein calorie malnutrition of chronic illness
Original Note:
Today's Communication/Plan
-
Lantus/NovoLog
Transition to oral antibiotics
Discharge planning
Assessment / Plan
Assessment / Plan
Gen-AAOx3, NAD, cachectic
HEENT-NC, AT, anicteric, clear oral mm
Neck-supple
CV-reg, no M, +S1/S2
Lungs-clear B/L
Abd-soft, NT, ND
Ext-no edema
Musculoskeletal-no cyanosis, clubbing
Skin-warm and dry
Neuro-grossly non-focal
Psych-calm, cooperative
Sepsis -presentation with generalized weakness, leukocytosis, tachycardia. WBC count improving. Afebrile. Differential diagnosis of community-acquired pneumonia versus urinary tract infection. He does have a mild cough, but denies urinary
symptoms. Urinalysis does show pyuria and hematuria. He is not a very good historian. Hemodynamically stable otherwise. Blood cultures negative so far. Urine culture shows mixed alesia, probable contamination. Sepsis resolved.
Discontinue further IV antibiotics. Complete course with Augmentin.
Paraphimosis/balanitis -much improved clinically. Fluconazole discontinued by urology.
Urinary retention, acute versus chronic -bladder scans consistently over [address] Aponte catheter. Discussed with nursing. Increase tamsulosin to twice daily. Did have transient hematuria after Aponte placement.
Continue Aponte catheter on discharge as per urology, outpatient follow-up.
Large right inguinal hernia -chronic but does have pain occasionally. General surgery recommends conservative management.
Ambulatory dysfunction -presentation with fall. Cannot rule out syncope. Monitor on telemetry. Check orthostatics. ICD interrogation without concerning arrhythmias. Discussed with cardiology.
Hypokalemia -improved.
Hypomagnesemia -improved.
Hypophosphatemia -start Neutra-Phos.
History of atrial flutter/fibrillation -continue Eliquis.
Chronic heart failure reduced EF -last echocardiogram showed EF improvement in January 2023.
Essential hypertension -stable.
Hyperlipidemia -pravastatin.
DM2 with hyperglycemia -uncontrolled. Hemoglobin A1c 11.5%. Likely not compliant with his home medications. He is prescribed glimepiride, Jardiance at home. Hold glimepiride in the hospital. Currently on Farxiga 10 mg daily, insulin aspart low
resistance corrective scale.
Glucose 132 this morning, 243 last night.
Add aspart 4 units with meals, Lantus 10 units at bedtime.
GERD
Underweight -concern for protein calorie malnutrition. Consult nutrition.
Depression/anxiety disorder -denies suicidal ideation currently. Psychiatry consult noted.
DNR
Dispo -anticipate discharge to SNF with option for long-term care. Currently resides in a hotel and cannot take care of himself. Med stable for discharge. Updated Case management.
Updated on the phone.
Anticipated Discharge: Within 24 hours
Subjective/Interval History
-
Date of Service: October 01, 2024
Patient seen/examined. No specific complaints.
Objective Data
-
Labs:
Laboratory Results
10/01/24
05:42
WBC 13.3 H
Hgb 11.7 L
Hct 34.9 L
Plt Count 215
Sodium 137
Potassium 4.1
Chloride 99
Carbon Dioxide 31 H
BUN 12
Creatinine 0.6 L
Glucose 161 H
Calcium 8.6
Vital Signs:
Vital Signs
Temp Pulse Resp BP Pulse Ox
98.6 F 92 17 128/54 97
10/01/24 11:03 10/01/24 11:03 10/01/24 11:03 10/01/24 11:03 10/01/24 11:03
I&O
09/30/24 10/01/24 10/02/24
06:59 06:59 06:59
Intake Total 1080 / 1079 810 / 810
Output Total 2094 1450 / 1450
Balance -1015 / -1015 -640 / -640
Review of Systems
-
History Source: Patient
All other systems: Reviewed and negative
--- NOTE | 2024-10-01 12:16 | W.PN.UPDATE ---
Update Note
Progress Note Update
patient seen chart reviewed. spoke with nursing and cm. the patient has been accepted at several nursing facilities and likely will go to [facility] as that is 's preference. patient seemed relieved to learn this. he despite their enmity
seems to worry about his who is 72 shuttling around to take care of her home and to help him out. he feels he cannot sustain the financial issues of living in a hotel and he needs much more help than he has had. cm tells me he will likely be
dc today or tomorrow. he reiterated that he is NOT suicidal (this issue arose when a paper tray and plastic utensils were deliveres as a remnant of something he said on admit. he is feeling more hopeful now tht he knows he is going to [place]. would
continue zoloft. would consider increase over the next few weeks to best effective dose depending on whether there are adverse effects. psych signing off.
[2024-10-01] MEDS: NEUTRA-PHOS POWDER PACKET 250 MG PO ×3 (12:45→22:59)
[2024-10-01] MEDS: AUGMENTIN 875 MG/125 MG 1 TABLET PO ×2 (12:45→20:56)
[2024-10-01 15:21] LABS: Glucose - Point of Care 256 mg/dl (70-99)
[2024-10-01] MEDS: NOVOLOG FLEXPEN-LOW RESISTANCE 3 UNITS SC (15:22)
[2024-10-01] MEDS: NOVOLOG FLEXPEN 4 UNITS SC (15:22)
[2024-10-01] MEDS: PRAVACHOL 40 MG PO (17:21)
[2024-10-01 21:58] LABS: Glucose - Point of Care 199 mg/dl (70-99)
[2024-10-01] MEDS: LANTUS 0.1 UNITS SC (22:59)
[2024-10-02 03:00] VITALS: BP 122/61
[2024-10-02 06:00] VITALS: BMI 16.9
[2024-10-02] MEDS: COREG 3.125 MG PO ×2 (07:29→21:20)
[2024-10-02] MEDS: LASIX 40 MG PO (07:30)
[2024-10-02] MEDS: ZOLOFT 75 MG PO (07:30)
[2024-10-02] MEDS: AUGMENTIN 875 MG/125 MG 1 TABLET PO ×2 (07:30→21:20)
[2024-10-02] MEDS: FARXIGA 10 MG PO (07:31)
[2024-10-02] MEDS: ELIQUIS 5 MG PO ×2 (07:31→21:20)
[2024-10-02] MEDS: VESICARE 5 MG PO (07:31)
[2024-10-02] MEDS: PROSCAR 5 MG PO (07:31)
[2024-10-02] MEDS: ALDACTONE 25 MG PO (07:32)
[2024-10-02] MEDS: FLOMAX 0.4 MG PO ×2 (07:33→21:20)
[2024-10-02] MEDS: NEUTRA-PHOS POWDER PACKET 250 MG PO (07:33)
[2024-10-02 07:45] LABS: Glucose - Point of Care 153 mg/dl (70-99)
[2024-10-02] MEDS: NOVOLOG FLEXPEN-LOW RESISTANCE 1 UNITS SC (07:45)
[2024-10-02] MEDS: NOVOLOG FLEXPEN 4 UNITS SC (07:45)
[2024-10-02] MEDS: HYDROCORTISONE 1% CREAM 1 APPLIC TOPICAL ×2 (07:47→21:22)
[2024-10-02] MEDS: MYCOSTATIN OINTMENT 1 APPLIC TOPICAL ×2 (07:47→21:22)
[2024-10-02 07:55] VITALS: BMI 16.9
[2024-10-02 08:07] VITALS: BP 130/61
--- NOTE | 2024-10-02 09:23 | PN.CDI ---
CDI
- -
CDI:
Physician Documentation Request
Admit Date: 09/29/24 08:03
Dear Doctor Osiel,
Hospitalist progress note states 'Differential diagnosis of community-acquired pneumonia versus urinary tract infection... denies urinary symptoms. Urinalysis does show pyuria and hematuria...Urine culture shows mixed alesia, probable contamination.
'
Please clarify the following:
____ - UTI is present
____ - UTI was ruled out
____ - UTI is still a likely, suspected, probable diagnosis
____ - Other
Use of terms such as suspected, likely, concern for, or probable (associated with a specific diagnosis that is being evaluated, monitored, or treated as if it exists) are acceptable and can be coded in the inpatient setting, when documented at the
time of discharge.
Thank you,
Neena Hobbs RN, BSN
CDI Specialist
tiger text
Please use your independent medical judgment in providing your response.
[2024-10-02 11:08] LABS: COVID-19 Antigen Negative (Negative)
[2024-10-02 11:49] LABS: Glucose - Point of Care 250 mg/dl (70-99)
[2024-10-02 12:04] LABS: % Basophils 0.7 % (0-2); % Eosinophils 2.2 % (0-6); % Immature Granulocytes 0.5 % (0-0.5); % Lymphocytes 14.8 % (20.5-51.1); % Monocytes 9.5 % (1.7-9.3); % Neutrophils 72.3 % (42.2-75.2); ALT (SGPT) 44 U/L (0-50); AST (SGOT) 39 U/L (17-59); Absolute Basophils 0.1 10^3/uL (0-0.2); Absolute Eosinophils 0.3 10^3/uL (0-0.7); Absolute Immature Granulocytes 0.1 10^3/uL (0-0.05); Absolute Lymphocytes 1.8 10^3/uL (1.2-3.4); Absolute Monocytes 1.2 10^3/uL (0.1-0.6); Absolute Neutrophils 8.7 10^3/uL (1.4-6.5); Albumin 3.4 g/dl (3.5-5.0); Alkaline Phosphatase 165 U/L (38-126); Blood Urea Nitrogen 15 mg/dl (9-20); Calcium 9.2 mg/dl (8.4-10.2); Carbon Dioxide 31 mmol/L (22-30); Chloride 96 mmol/L (98-107); Estimated Creatinine Clearance 70 ml/min; Glucose 196 mg/dl (70-99); Hematocrit 39.7 % (39.0-52.0); Hemoglobin 13.1 g/dL (13.0-18.0); Magnesium 1.8 mg/dl (1.6-2.3); Mean Corpuscular Hgb 28.1 pg (27.0-31.0); Mean Platelet Volume 9.1 fL (7.4-10.4); Nucleated Red Blood Cells % 0 % (-); Phosphorus 3.4 mg/dl (2.5-4.5); Platelet Count 286 10^3/uL (130-400); Potassium 4.9 mmol/L (3.5-5.1); Red Blood Cell Count 4.67 10^6/uL (4.70-6.10); Red Cell Dist. Width 14.7 % (11.5-14.5); Sodium 133 mmol/L (135-145); Total Bilirubin 0.4 mg/dl (0.2-1.3); Total Protein 6.7 g/dl (6.3-8.2); White Blood Cell Count 12.1 10^3/uL (4.8-10.8); eGFR > 60.00
--- NOTE | 2024-10-02 12:32 | W.PN.HOSP.TC ---
Today's Communication/Plan
-
Adjust insulin dose
Discharge planning
Assessment / Plan
Assessment / Plan
Gen-AAOx3, NAD, cachectic
HEENT-NC, AT, anicteric, clear oral mm
Neck-supple
CV-reg, no M, +S1/S2
Lungs-clear B/L
Abd-soft, NT, ND
Ext-no edema
Musculoskeletal-no cyanosis, clubbing
Skin-warm and dry
Neuro-grossly non-focal
Psych-calm, cooperative
Sepsis -presentation with generalized weakness, leukocytosis, tachycardia. WBC count improving. Afebrile. Differential diagnosis of community-acquired pneumonia versus urinary tract infection. He does have a mild cough, but denies urinary
symptoms. Urinalysis does show pyuria and hematuria. He is not a very good historian. Hemodynamically stable otherwise. Blood cultures negative so far. Urine culture shows mixed alesia, probable contamination. Sepsis resolved.
Continue with Augmentin for pneumonia. Was on IV ceftriaxone earlier in the week. Day 5 of 7 for antibiotics.
At this point I believe we have ruled out UTI.
Paraphimosis/balanitis -much improved clinically. Fluconazole discontinued by urology.
Urinary retention, acute versus chronic -bladder scans consistently over [address] Aponte catheter. Discussed with nursing. Increase tamsulosin to twice daily. Did have transient hematuria after Aponte placement.
Continue Aponte catheter on discharge as per urology, outpatient follow-up.
Large right inguinal hernia -chronic but does have pain occasionally. General surgery recommends conservative management.
Ambulatory dysfunction -presentation with fall. Cannot rule out syncope. Monitor on telemetry. Not orthostatic based on vitals. ICD interrogation without concerning arrhythmias. Discussed with cardiology.
Hypokalemia -improved.
Hypomagnesemia -improved.
Hypophosphatemia -start Neutra-Phos.
History of atrial flutter/fibrillation -continue Eliquis.
Chronic heart failure preserved EF -last echocardiogram showed EF improvement in January 2023.
Essential hypertension -stable.
Hyperlipidemia -pravastatin.
DM2 with hyperglycemia -uncontrolled. Hemoglobin A1c 11.5%. Likely not compliant with his home medications. He is prescribed glimepiride, Jardiance at home. Hold glimepiride in the hospital. Currently on Farxiga 10 mg daily, insulin aspart low
resistance corrective scale.
Glucose 153 this morning, 199 last night.
Increase aspart to 6 units with meals, continue Lantus 10 units at bedtime.
GERD
Severe protein calorie malnutrition of chronic illness
Depression/anxiety disorder -denies suicidal ideation currently. Psychiatry consult noted.
DNR
Dispo -anticipate discharge to SNF with option for long-term care. Currently resides in a hotel and cannot take care of himself. Med stable for discharge. Updated Case management.
Updated on the phone.
Anticipated Discharge: Within 24 hours
Subjective/Interval History
-
Date of Service: October 02, 2024
Patient seen and examined. No complaints.
Objective Data
-
Labs:
Laboratory Results
10/02/24
11:28
WBC 12.1 H
Hgb 13.1
Hct 39.7
Plt Count 286 D
Sodium 133 L
Potassium 4.9
Chloride 96 L
Carbon Dioxide 31 H
BUN 15
Creatinine 0.6 L
Glucose 196 H
Calcium 9.2
Total Bilirubin 0.4
AST 39
ALT 44
Alkaline Phosphatase 165 H
Vital Signs:
Vital Signs
Temp Pulse Resp BP Pulse Ox
98.0 F 69 18 130/61 93
10/02/24 08:07 10/02/24 08:07 10/02/24 08:07 10/02/24 08:07 10/02/24 08:07
I&O
10/01/24 10/02/24 10/03/24
06:59 06:59 06:59
Intake Total 810 / 810 1430 / 1430
Output Total 1450 / 1450 3050 / 3050
Balance -640 / -640 -1620 / -1620
Review of Systems
-
History Source: Patient
All other systems: Reviewed and negative
[2024-10-02] MEDS: NOVOLOG FLEXPEN-LOW RESISTANCE 3 UNITS SC (13:02)
[2024-10-02] MEDS: NOVOLOG FLEXPEN SC (13:08)
[2024-10-02 15:03] VITALS: BP 112/46
[2024-10-02 17:37] LABS: Glucose - Point of Care 231 mg/dl (70-99)
[2024-10-02] MEDS: NOVOLOG FLEXPEN-LOW RESISTANCE 2 UNITS SC (17:38)
[2024-10-02] MEDS: NOVOLOG FLEXPEN 6 UNITS SC (17:38)
[2024-10-02] MEDS: PRAVACHOL 40 MG PO (17:39)
[2024-10-02] MEDS: LANTUS 0.1 UNITS SC (21:20)
[2024-10-02 21:23] LABS: Glucose - Point of Care 91 mg/dl (70-99)
[2024-10-02 23:35] VITALS: BP 123/50
[2024-10-03 06:00] VITALS: BMI 16.7
[2024-10-03 07:49] LABS: Glucose - Point of Care 147 mg/dl (70-99)
[2024-10-03 08:08] VITALS: BP 100/59
[2024-10-03] MEDS: VESICARE 5 MG PO (09:29)
[2024-10-03] MEDS: ELIQUIS 5 MG PO ×2 (09:29→20:29)
[2024-10-03] MEDS: AUGMENTIN 875 MG/125 MG 1 TABLET PO ×2 (09:29→20:29)
[2024-10-03] MEDS: COREG 3.125 MG PO ×2 (09:30→20:29)
[2024-10-03] MEDS: FARXIGA 10 MG PO (09:30)
[2024-10-03] MEDS: LASIX 40 MG PO (09:30)
[2024-10-03] MEDS: ZOLOFT 75 MG PO (09:30)
[2024-10-03] MEDS: FLOMAX 0.4 MG PO ×2 (09:31→20:29)
[2024-10-03] MEDS: HYDROCORTISONE 1% CREAM 1 APPLIC TOPICAL ×2 (09:31→20:30)
[2024-10-03] MEDS: ALDACTONE 25 MG PO (09:31)
[2024-10-03] MEDS: NOVOLOG FLEXPEN-LOW RESISTANCE SC (09:31)
[2024-10-03] MEDS: PROSCAR 5 MG PO (09:31)
[2024-10-03] MEDS: MYCOSTATIN OINTMENT 1 APPLIC TOPICAL ×2 (09:31→20:29)
[2024-10-03] MEDS: NOVOLOG FLEXPEN 6 UNITS SC ×3 (09:32→17:05)
[2024-10-03 11:41] LABS: Glucose - Point of Care 200 mg/dl (70-99)
--- NOTE | 2024-10-03 12:27 | W.PN.HOSP.TC ---
Today's Communication/Plan
-
Discharge planning
Assessment / Plan
Assessment / Plan
Gen-AAOx3, NAD, cachectic
HEENT-NC, AT, anicteric, clear oral mm
Neck-supple
CV-reg, no M, +S1/S2
Lungs-clear B/L
Abd-soft, NT, ND
Ext-no edema
Musculoskeletal-no cyanosis, clubbing
Skin-warm and dry
Neuro-grossly non-focal
Psych-calm, cooperative
Sepsis -presentation with generalized weakness, leukocytosis, tachycardia. WBC count improving. Afebrile. Differential diagnosis of community-acquired pneumonia versus urinary tract infection. He does have a mild cough, but denies urinary
symptoms. Urinalysis does show pyuria and hematuria. He is not a very good historian. Hemodynamically stable otherwise. Blood cultures negative so far. Urine culture shows mixed alesia, probable contamination. Sepsis resolved.
Continue with Augmentin for pneumonia. Was on IV ceftriaxone earlier in the week. Day 6 of 7 for antibiotics.
At this point I believe we have ruled out UTI.
Paraphimosis/balanitis -much improved clinically. Fluconazole discontinued by urology.
Urinary retention, acute versus chronic -bladder scans consistently over [address] Aponte catheter. Discussed with nursing. Increase tamsulosin to twice daily. Did have transient hematuria after Aponte placement.
Continue Aponte catheter on discharge as per urology, outpatient follow-up.
Large right inguinal hernia -chronic but does have pain occasionally. General surgery recommends conservative management.
Ambulatory dysfunction -presentation with fall. Cannot rule out syncope. Monitor on telemetry. Not orthostatic based on vitals. ICD interrogation without concerning arrhythmias. Discussed with cardiology.
Hypokalemia -improved.
Hypomagnesemia -improved.
Hypophosphatemia -start Neutra-Phos.
History of atrial flutter/fibrillation -continue Eliquis.
Chronic heart failure preserved EF -last echocardiogram showed EF improvement in January 2023.
Essential hypertension -stable.
Hyperlipidemia -pravastatin.
DM2 with hyperglycemia -uncontrolled. Hemoglobin A1c 11.5%. Likely not compliant with his home medications. He is prescribed glimepiride, Jardiance at home. Hold glimepiride in the hospital. Currently on Farxiga 10 mg daily, insulin aspart low
resistance corrective scale.
Glucose 147 this morning, 91 last night.
Continue aspart 6 units with meals, Lantus 10 units at bedtime.
GERD
Severe protein calorie malnutrition of chronic illness
Depression/anxiety disorder -denies suicidal ideation currently. Psychiatry consult noted.
DNR
Dispo -anticipate discharge to SNF with option for long-term care. Currently resides in a hotel and cannot take care of himself. Med stable for discharge. Updated Case management.
Anticipated Discharge: Within 24 hours
Subjective/Interval History
-
Date of Service: October 03, 2024
Patient seen and examined. No complaints.
Objective Data
-
Vital Signs:
Vital Signs
Temp Pulse Resp BP Pulse Ox
97.9 F 60 14 100/59 96
10/03/24 08:08 10/03/24 08:08 10/03/24 08:08 10/03/24 08:08 10/03/24 08:08
I&O
10/02/24 10/03/24 10/04/24
06:59 06:59 06:59
Intake Total 1430 / 1430 580 / 580
Output Total 3050 / 3050 2500 / 2500 600 / 600
Balance -1620 / -1620 -1920 / -1920 -600 / -600
Review of Systems
-
History Source: Patient
All other systems: Reviewed and negative
[2024-10-03 13:14] VITALS: BP 119/59; BP 132/50; PULSE 58; O2SAT 96
[2024-10-03] MEDS: NOVOLOG FLEXPEN-LOW RESISTANCE 2 UNITS SC (14:16)
[2024-10-03 15:29] VITALS: BP 107/66
[2024-10-03 16:34] LABS: Glucose - Point of Care 150 mg/dl (70-99)
--- NOTE | 2024-10-03 16:59 | CM ---
Spoke with wes at [facility] she said she had a bed Saturday.
Spoke with pt he was in agreement but said speak with his Trish.
IMM reviewed with him and Trish. IMM signed on chart.
Trish called back and agreed with [facility].
Will need ambulance
[facility]
report [phone]
fax [phone]
PLAn To [facility]
[2024-10-03] MEDS: PRAVACHOL 40 MG PO (17:06)
[2024-10-03] MEDS: NOVOLOG FLEXPEN-LOW RESISTANCE 1 UNITS SC (17:06)
--- NOTE | 2024-10-03 17:07 | PTCARENOTE ---
At lunch, franky boo called me into the room because the patient was choking on his food. When i arrived in the room he was coughing vigorously while sitting in the chair. As i approached a position to begin the hemlich, he was able to quickly
clear the meatloaf. he stated a piece got stuck in the back of his throat. the meatloaf was very dry. I gave him some water and he had no difficulty swallowing. I then gave him applesauce and he had no difficulty swallowing either. I put a suction
set up at bedside in case it would happen again. i notified the MD and Md did not want to make any changes to his diet. Pt currently eating dinner, meatloaf again, but this time very moist looking. he is not coughing
[2024-10-03] MEDS: TYLENOL 650 MG PO (20:34)
[2024-10-03 21:45] LABS: Glucose - Point of Care 79 mg/dl (70-99)
[2024-10-03] MEDS: LANTUS 0.1 UNITS SC (21:56)
[2024-10-03 23:15] VITALS: BP 112/51
[2024-10-03 23:59] LABS: Glucose - Point of Care 157 mg/dl (70-99)
[2024-10-04 06:00] VITALS: BMI 16.5
[2024-10-04 07:24] LABS: Glucose - Point of Care 112 mg/dl (70-99)
[2024-10-04 07:51] VITALS: BP 98/58
[2024-10-04] MEDS: FLOMAX 0.4 MG PO (08:44)
[2024-10-04] MEDS: ELIQUIS 5 MG PO (08:44)
[2024-10-04] MEDS: ZOLOFT 75 MG PO (08:48)
[2024-10-04] MEDS: LASIX 40 MG PO (08:48)
[2024-10-04] MEDS: PROSCAR 5 MG PO (08:48)
[2024-10-04] MEDS: FARXIGA 10 MG PO (08:48)
[2024-10-04] MEDS: ALDACTONE 25 MG PO (08:48)
[2024-10-04] MEDS: NOVOLOG FLEXPEN-LOW RESISTANCE SC ×2 (08:49→16:28)
[2024-10-04] MEDS: VESICARE 5 MG PO (08:49)
[2024-10-04] MEDS: COREG PO (08:50)
[2024-10-04] MEDS: AUGMENTIN 875 MG/125 MG 1 TABLET PO (08:50)
[2024-10-04] MEDS: MYCOSTATIN OINTMENT 1 APPLIC TOPICAL (08:50)
[2024-10-04] MEDS: NOVOLOG FLEXPEN 6 UNITS SC ×2 (08:50→12:15)
[2024-10-04] MEDS: HYDROCORTISONE 1% CREAM 1 APPLIC TOPICAL (08:50)
--- NOTE | 2024-10-04 10:42 | W.DS.TRANS ---
DC Summary - Commercial Attorney
-
Discharge Instructions:
Discharge Diagnosis/Procedures Sepsis, pneumonia, paraphimosis, urinary
retention, right inguinal hernia
Diet Diabetic, Carb Controlled
Activity With assistance
Driving Restrictions No driving
Bathing Restrictions None
Instructions:
Stand-Alone Forms:
Changes to Home Medications: No
Discharge Medications:
DC Medications w/original date entered in [employer]
bimatoprost 0.01 % eye drops (Lumigan) 1 drp BOTH EYES HS Eye condition 06/26/22
brimonidine 0.2 %-timolol 0.5 % eye drops (Combigan) 1 drp BOTH EYES BID Eye condition 06/26/22
pravastatin 40 mg tablet 40 mg PO QPM High cholesterol 06/26/22
carvedilol 3.125 mg tablet 3.125 mg PO BID Heart Failure 07/11/22
empagliflozin 10 mg tablet (Jardiance) 10 mg PO DAILY Diabetes 07/11/22
solifenacin 5 mg tablet 5 mg PO DAILY Urinary issue 07/11/22
apixaban 5 mg tablet (Eliquis) 5 mg PO BID Blood Clot Prevention/Tx 09/28/24
furosemide 40 mg tablet (Lasix) 40 mg PO DAILY Fluid Retention/Swelling 09/28/24
hydroxyzine HCl 25 mg tablet 25 mg PO TIDPRN PRN anxiety 09/28/24
spironolactone 25 mg tablet 25 mg PO DAILY Heart Failure 09/28/24
Insulin Glargine Lantus [Lantus] 10 units As Directed mls/hr SC HS 10/04/24
finasteride 5 mg tablet 5 mg PO DAILY #0 tabs 10/04/24
hydrocortisone 1 % topical cream 1 applic topical BID #0 grams 10/04/24
insulin aspart U-100 100 unit/mL (3 mL) subcutaneous pen 6 unit (0.06 mL) SC AC #0 mL 10/04/24
nystatin 100,000 unit/gram topical ointment 1 applic topical BID #0 grams 10/04/24
sertraline 50 mg tablet 75 mg (1.5 x 50 mg) PO DAILY #0 tabs 10/04/24
tamsulosin 0.4 mg capsule 0.4 mg PO BID #0 caps 10/04/24
Home Medication Changes
Pending Results: No
--- NOTE | 2024-10-04 10:53 | CM ---
MD indicated pt ready for discharge.
Neena at [facility] she said she had a bed today.
Spoke with pt he was in agreement Spoke with Trish.
Trish today agreed with [facility].
Pt with [facility] .
requested ambulance . Medical nec form completed
[facility]
report [phone]
fax [phone]
PLAn To [facility]
[2024-10-04 11:14] VITALS: BP 140/82
--- NOTE | 2024-10-04 11:45 | W.PN.HOSP.TC ---
Today's Communication/Plan
-
Discharge
Assessment / Plan
Assessment / Plan
Gen-AAOx3, NAD, cachectic
HEENT-NC, AT, anicteric, clear oral mm
Neck-supple
CV-reg, no M, +S1/S2
Lungs-clear B/L
Abd-soft, NT, ND
Ext-no edema
Musculoskeletal-no cyanosis, clubbing
Skin-warm and dry
Neuro-grossly non-focal
Psych-calm, cooperative
Sepsis -presentation with generalized weakness, leukocytosis, tachycardia. WBC count improving. Afebrile. Differential diagnosis of community-acquired pneumonia versus urinary tract infection. He does have a mild cough, but denies urinary
symptoms. Urinalysis does show pyuria and hematuria. He is not a very good historian. Hemodynamically stable otherwise. Blood cultures negative so far. Urine culture shows mixed alesia, probable contamination. Sepsis resolved.
Last day of antibiotics for pneumonia.
At this point I believe we have ruled out UTI.
Paraphimosis/balanitis -much improved clinically. Fluconazole discontinued by urology.
Urinary retention, acute versus chronic -bladder scans consistently over [address] Aponte catheter. Discussed with nursing. Increased tamsulosin to twice daily. Did have transient hematuria after Aponte placement.
Continue Aponte catheter on discharge as per urology, outpatient follow-up.
Large right inguinal hernia -chronic but does have pain occasionally. General surgery recommends conservative management.
Ambulatory dysfunction -presentation with fall. Cannot rule out syncope. Monitor on telemetry. Not orthostatic based on vitals. ICD interrogation without concerning arrhythmias. Discussed with cardiology.
Hypokalemia -improved.
Hypomagnesemia -improved.
Hypophosphatemia -start Neutra-Phos.
History of atrial flutter/fibrillation -continue Eliquis.
Chronic heart failure preserved EF -last echocardiogram showed EF improvement in January 2023.
Essential hypertension -stable.
Hyperlipidemia -pravastatin.
DM2 with hyperglycemia -uncontrolled. Hemoglobin A1c 11.5%. Likely not compliant with his home medications. He is prescribed glimepiride, Jardiance at home. Hold glimepiride in the hospital. Currently on Farxiga 10 mg daily, insulin aspart low
resistance corrective scale.
Glucose 112 this morning, 157 last night.
Continue aspart 6 units with meals, Lantus 10 units at bedtime.
GERD
Severe protein calorie malnutrition of chronic illness
Depression/anxiety disorder -denies suicidal ideation currently. Psychiatry consult noted.
DNR
Dispo -medically stable for discharge to SNF today.
33 minutes spent in discharge process.
Anticipated Discharge: Today
Subjective/Interval History
-
Date of Service: October 04, 2024
Patient seen and examined. No complaints.
Objective Data
-
Vital Signs:
Vital Signs
Temp Pulse Resp BP Pulse Ox
97.9 F 57 17 140/82 98
10/04/24 07:51 10/04/24 07:51 10/04/24 07:51 10/04/24 11:14 10/04/24 07:51
I&O
10/03/24 10/04/24 10/05/24
06:59 06:59 06:59
Intake Total 580 / 580 540 / 540
Output Total 2500 / 2500 2049
Balance -1920 / -1920 -1510 / -1510
Review of Systems
-
History Source: Patient
All other systems: Reviewed and negative
[2024-10-04 11:51] LABS: Glucose - Point of Care 165 mg/dl (70-99)
[2024-10-04] MEDS: NOVOLOG FLEXPEN-LOW RESISTANCE 1 UNITS SC (12:15)
[2024-10-04 14:53] VITALS: BP 112/52
[2024-10-04 14:56] VITALS: BP 114/70
[2024-10-04] MEDS: NOVOLOG FLEXPEN SC (16:28)
== END 2024-10-04 17:03 | DRG 871 ==
LOC: 3 WEST ACU 08:03
PROVIDERS: Emergency Medicine; Nurse Practitioner Family; ADMITTING PHYSICIAN Hospitalist; CONSULT PHYSICIAN Psychiatry & Neurology Psychiatry; CONSULT PHYSICIAN Specialist; CONSULT PHYSICIAN Surgery; EMERGENCY PHYSICIAN Emergency Medicine; FAMILY PHYSICIAN Family Medicine
DX: A41.9 Sepsis, unspecified organism (principal); E43 Unspecified severe protein-calorie malnutrition; J18.9 Pneumonia, unspecified organism; I50.32 Chronic diastolic (congestive) heart failure; Z59.01 Sheltered homelessness; Z68.1 Body mass index [BMI] 19.9 or less, adult; N47.2 Paraphimosis; N48.1 Balanitis; K40.90 Unilateral inguinal hernia, without obstruction or gangrene, not specified as recurrent; I11.0 Hypertensive heart disease with heart failure; F32.A Depression, unspecified; F41.9 Anxiety disorder, unspecified; Z79.84 Long term (current) use of oral hypoglycemic drugs; E11.9 Type 2 diabetes mellitus without complications; E78.00 Pure hypercholesterolemia, unspecified; E87.6 Hypokalemia; E83.42 Hypomagnesemia; E83.39 Other disorders of phosphorus metabolism; E11.65 Type 2 diabetes mellitus with hyperglycemia; K21.9 Gastro-esophageal reflux disease without esophagitis; Z66 Do not resuscitate; W19.XXXA Unspecified fall, initial encounter; Z87.891 Personal history of nicotine dependence; Z79.01 Long term (current) use of anticoagulants; I48.91 Unspecified atrial fibrillation; N47.1 Phimosis; R32 Unspecified urinary incontinence; R62.7 Adult failure to thrive; Z63.8 Other specified problems related to primary support group; Z79.899 Other long term (current) drug therapy; Z11.52 Encounter for screening for COVID-19
CPT/HCPCS: 70450; 71046; 76770; 80048; 80053; 81003; 81015; 82550; 82962; 83036; 83605; 83735; 84100; 84484; 85025; 85027; 87040; 87086; 87811; 92523; 92526; 92610; 93005; 96360; 97116; 97167; 97530; 97535; 99285